=== PATIENT | male | born 1965 | race Caucasian/White ===

== ENCOUNTER 2017-09-19 21:50 | Observation (INO) | payer OTHER ==
[~2017-09-19] VITALS: Ht 175.3 cm; Wt 115.0 kg
[2017-09-19 22:20] VITALS: BP 185/91; PULSE 79; RESP 12; TEMP 98.6; O2SAT 98
--- NOTE | 2017-09-19 22:29 | PD ---
HPI Chief Complaint: Suicide Ideation/Attempt Time Seen by Provider: 22:21 Travel History International Travel<30 days: No Contact w/Intl Traveler<30days: No Traveled to known affect area: No History of Present Illness HPI 52-year-old male presents under [place] act initially by the [employer] Department. According to his paperwork he threatened to shoot himself in the head with a gun. The patient reports that today he was notified by the associate professor of forestry and police officers that his son in a car accident. He developed chest pressure immediately afterwards. This was approximately 4 PM. He describes as a substernal chest pressure which has been intermittent since then with associated lightheadedness/dizziness. Symptoms are moderate, aggravated by stress and grieving, no alleviating factors. Denies shortness of breath, nausea or vomiting, abdominal pain. He reports a history of coronary artery disease with stent placement in 2007. He reports that he has similar chest pain at that time. He also reports a history of hypertension, diabetes and hyperlipidemia. He is currently denying any suicidal ideation but he does report that he feels depressed secondary to the passing of his son. He did have a gun which he turned over to police. Denies any psychiatric history. He has no other complaints at this time. PFSH Past Medical History Hx Anticoagulant Therapy: Yes Cardiovascular Problems: Yes Chemotherapy: No Cerebrovascular Accident: No Diabetes: Yes Respiratory: No ?: Not Past Surgical History Hysterectomy: No Social History Tobacco Use: No Allergies-Medications (Allergen,Severity, Reaction): Coded Allergies: No Known Allergies (Unverified , 09/19/17) Reported Meds & Prescriptions Reported Meds & Active Scripts Active Active Prescriptions or Reported Medications Unobtainable Review of Systems Except as stated in HPI: all other systems reviewed are Neg Physical Exam Narrative GENERAL: Well-developed well-nourished male in no acute distress SKIN: Warm and dry. HEAD: Atraumatic. Normocephalic. EYES: Pupils equal and round. No scleral icterus. No injection or drainage. ENT: No nasal bleeding or discharge. Mucous membranes pink and moist. NECK: Trachea midline. No JVD. CARDIOVASCULAR: Regular rate and rhythm. No murmur appreciated. RESPIRATORY: No accessory muscle use. Clear to auscultation. Breath sounds equal bilaterally. GASTROINTESTINAL: Abdomen soft, non-tender, nondistended. Hepatic and splenic margins not palpable. MUSCULOSKELETAL: No obvious deformities. No clubbing. No cyanosis. No edema. NEUROLOGICAL: Awake and alert. No obvious cranial nerve deficits. Motor grossly within normal limits. Normal speech. PSYCHIATRIC: Appropriate mood and affect; insight and judgment normal. Data Data Last Documented VS Vital Signs Date Time Temp Pulse Resp B/P (MAP) Pulse Ox O2 Delivery O2 Flow Rate FiO2 09/19/17 23:37 71 14 194/98 (130) 96 Room Air 09/19/17 22:20 98.6 Orders Orders Electrocardiogram (09/19/17 22:21) Basic Metabolic Panel (Bmp) (09/19/17 22:21) Ckmb (Isoenzyme) Profile (09/19/17 22:21) Complete Blood Count With Diff (09/19/17 22:21) Magnesium (Mg) (09/19/17 22:21) Prothrombin Time / Inr (Pt) (09/19/17 22:21) Act Partial Throm Time (Ptt) (09/19/17 22:21) Troponin I (09/19/17 22:21) Chest, Single Ap (09/19/17 22:21) Ecg Monitoring (09/19/17 22:21) Bilateral Bp Monitoring (09/19/17 22:21) Iv Access Insert/Monitor (09/19/17 22:21) Oximetry (09/19/17 22:21) Oxygen Administration (09/19/17 22:21) Aspirin Chew (Aspirin Chew) (09/19/17 22:30) Sodium Chloride 0.9% Flush (Ns Flush) (09/19/17 22:30) Nitroglycerin Sl (Nitrostat Sl) (09/19/17 22:30) Drug Screen, Random Urine (09/19/17 22:21) Alcohol (Ethanol) (09/19/17 22:21) CKMB (09/19/17 23:10) CKMB% (09/19/17 23:10) Potassium Chloride (Kcl) (09/20/17 00:15) Metoprolol Tartrate (Lopressor) (09/20/17 00:15) Clonidine (Catapres) (09/20/17 00:15) Hydralazine (Apresoline) (09/20/17 00:15) Olanzapine (Zyprexa) (09/20/17 00:15) Admit Order (Ed Use Only) (09/20/17 00:12) Activity Bed Rest With Brp (09/20/17 00:12) Vital Signs (Adult) Q4H (09/20/17 00:12) Cardiac Rhythm .As Directed (09/20/17 00:12) Notify Dr: Other .PRN (09/20/17 00:12) Notify DrLeon Parameters (09/20/17 00:12) Resp Oxygen Nasal Cannula (09/20/17 ) Ckmb (Isoenzyme) Profile (09/20/17 02:10) Ckmb (Isoenzyme) Profile (09/20/17 05:10) Troponin I (09/20/17 02:10) Troponin I (09/20/17 05:10) Electrocardiogram (09/20/17 02:10) Electrocardiogram (09/20/17 05:10) ^ Obtain (09/20/17 00:12) Sodium Chloride 0.9% Flush (Ns Flush) (09/20/17 00:15) Sodium Chloride 0.9% Flush (Ns Flush) (09/20/17 09:00) Labs Laboratory Tests Test 09/19/17 23:10 White Blood Count 10.8 TH/MM3 Red Blood Count 5.05 MIL/MM3 Hemoglobin 14.9 GM/DL Hematocrit 42.8 % Mean Corpuscular Volume 84.8 FL Mean Corpuscular Hemoglobin 29.5 PG Mean Corpuscular Hemoglobin Concent 34.9 % Red Cell Distribution Width 13.9 % Platelet Count 236 TH/MM3 Mean Platelet Volume 9.3 FL Neutrophils (%) (Auto) 67.1 % Lymphocytes (%) (Auto) 20.1 % Monocytes (%) (Auto) 10.9 % Eosinophils (%) (Auto) 1.1 % Basophils (%) (Auto) 0.8 % Neutrophils # (Auto) 7.2 TH/MM3 Lymphocytes # (Auto) 2.2 TH/MM3 Monocytes # (Auto) 1.2 TH/MM3 Eosinophils # (Auto) 0.1 TH/MM3 Basophils # (Auto) 0.1 TH/MM3 CBC Comment DIFF FINAL Differential Comment Prothrombin Time 10.0 SEC Prothromb Time International Ratio 1.0 RATIO Activated Partial Thromboplast Time 25.0 SEC Blood Urea Nitrogen 14 MG/DL Creatinine 0.98 MG/DL Random Glucose 132 MG/DL Calcium Level 9.0 MG/DL Magnesium Level 2.0 MG/DL Sodium Level 142 MEQ/L Potassium Level 2.8 MEQ/L Chloride Level 104 MEQ/L Carbon Dioxide Level 26.3 MEQ/L Anion Gap 12 MEQ/L Estimat Glomerular Filtration Rate 81 ML/MIN Total Creatine Kinase 192 U/L Troponin I LESS THAN 0.02 NG/ML Ethyl Alcohol Level LESS THAN 3 MG/DL MDM Medical Decision Making Medical Screen Exam Complete: Yes Emergency Medical Condition: Yes Medical Record Reviewed: Yes Differential Diagnosis Angina, acute coronary syndrome, costochondritis, pericarditis, myocarditis, aortic dissection, pulmonary embolism, anxiety, depression Narrative Course The patient was placed on ECG monitoring pulse oximetry. A 12 EKG was obtained revealing sinus rhythm, Q waves noted in the inferior leads. The patient was given 243 mg of aspirin, he took 1 baby aspirin this morning. He was given 1 sublingual nitroglycerin which resolved his pain. Lab work, chest x-ray ordered. The patient is grieving the of his son however he is denying any suicidal homicidal ideation, Jordan act has been lifted by Dr. Yin. Lab work and imaging studies have been reviewed. Potassium is 2.8, oral potassium chloride ordered. At this point time the plan is to admit him into the chest pain center for serial cardiac enzymes and rule out purposes. He is agreeable. He was given his nighttime medications. Diagnosis Primary Impression: Chest pain Qualified Codes: R07.9 - Chest pain, unspecified Admitting Information Admitting Physician Requests: Observation Scripts Unable to Obtain Active Prescriptions or Reported Meds Ariel Zarate Sep 19, 2017 22:29
[2017-09-19] MEDS ORDERED: ASPIRIN 81 MG CHEW TAB PO ONE (22:30)
[2017-09-19] MEDS ORDERED: SODIUM CHLORIDE 0.9% FLUSH 10 ML FLUSH IVF PRN (22:30)
[2017-09-19] MEDS ORDERED: NITROGLYCERIN 0.4 MG SL 25 TABS/BTL SL SCH (22:30)
--- NOTE | 2017-09-19 22:47 | RADRPT ---
EXAM DATE: 09/19/2017 10:41 PM EDT AGE/SEX: 52 years / Male INDICATIONS: Chest pain. CLINICAL DATA: This is the patient's initial encounter. Patient reports that signs and symptoms have been present for 1 day and indicates a pain score of 5/10. MEDICAL/SURGICAL HISTORY: None. None. COMPARISON: No prior [facility] exams available for comparison. FINDINGS: A single AP view of the chest demonstrates the lungs to be symmetrically aerated without evidence of mass, infiltrate or effusion. The cardiomediastinal contours are unremarkable except for probable hi atal hernia. Osseous structures are intact. CONCLUSION: No acute findings. Probable hiatal hernia. Electronically signed by: Lui Mckeon MD 09/19/2017 10:46 PM EDT
[2017-09-19 23:28] LABS: AUTOMATED NEUTROPHIL # 7.2 TH/MM3 (1.8-7.7); BASOPHIL # 0.1 TH/MM3 (0-0.2); BASOPHIL % 0.8 % (0.0-2.0); EOSINOPHIL # 0.1 TH/MM3 (0-0.4); EOSINOPHIL % 1.1 % (0.0-4.0); HEMATOCRIT 42.8 % (39.0-51.0); HEMOGLOBIN 14.9 GM/DL (13.0-17.0); LYMPH % 20.1 % (9.0-44.0); LYMPHOCYTE # 2.2 TH/MM3 (1.0-4.8); MEAN CELL VOLUME 84.8 FL (80.0-100.0); MEAN CORPUSCULAR HEMOGLOBIN 29.5 PG (27.0-34.0); MEAN CORPUSCULAR HGB CONC 34.9 % (32.0-36.0); MEAN PLATELET VOLUME 9.3 FL (7.0-11.0); MONO % 10.9 % (0.0-8.0); MONOCYTE # 1.2 TH/MM3 (0-0.9); NEUT % 67.1 % (16.0-70.0); PLATELET COUNT 236 TH/MM3 (150-450); RED BLOOD COUNT 5.05 MIL/MM3 (4.50-5.90); RED CELL DISTRIBUTION WIDTH 13.9 % (11.6-17.2); WHITE BLOOD COUNT 10.8 TH/MM3 (4.0-11.0)
[2017-09-19 23:30] VITALS: BP 189/100; PULSE 68; RESP 26; O2SAT 96
[2017-09-19 23:32] VITALS: O2SAT 97
[2017-09-19 23:37] VITALS: BP 194/98; PULSE 71; RESP 14; O2SAT 96
[2017-09-20] VITALS (12 sets, daily range): BP systolic 155–212; BP diastolic 74–100; PULSE 47–65; RESP 17–20; TEMP 97.8–98.7; O2SAT 91–97
[2017-09-20] LABS: BICARBONATE 26.3 MEQ/L (21.0-32.0); BLOOD UREA NITROGEN 14 MG/DL (7-18); CHLORIDE 104 MEQ/L (98-107); CREATININE 0.98 MG/DL (0.60-1.30); GLOMERULAR FILTRATION RATE 81 ML/MIN (>89); GLUCOSE,RANDOM 132 MG/DL (74-106); SODIUM (NA) 142 MEQ/L (136-145); TROPONIN I LESS THAN 0.02 NG/ML (0.02-0.05)
[2017-09-20] MEDS ORDERED: cloNIDine HCL 0.2 MG TAB PO ONE (00:15)
[2017-09-20] MEDS ORDERED: SODIUM CHLORIDE 0.9% FLUSH 10 ML FLUSH IV FLUSH PRN (00:15)
[2017-09-20] MEDS ORDERED: OLANZapine 10 MG TAB PO ONE (00:15)
[2017-09-20] MEDS ORDERED: POTASSIUM CHLORIDE 20 MEQ CONTROLLED RELEASE TAB PO ONE (00:15)
[2017-09-20] MEDS ORDERED: hydrALAZINE HCL 25 MG TAB PO ONE (00:15)
[2017-09-20] MEDS ORDERED: METOPROLOL TARTRATE 25 MG TAB PO ONE (00:15)
--- NOTE | 2017-09-20 00:15 | PD ---
Physical Exam Narrative I, Dr. Yin, have reviewed the advance practice practitioner's documentation and am in agreement, met with the patient face to face, made the diagnosis, and the medical decision making was done by me. *My assessment and Findings: ACS vs. grievance vs. pneumonia 52yo M with CAD s/p cardiac stent, HTN, DM presents to the ED with midsternal chest pain after hearing that his son today. Said pain is pressure like. Pt was Jordan Acted because the Jordan Act said he was going to blow a hole in his head. However, pt denies stating that, said he gave his son to the chief of police and denies any suicidal or homicidal ideations. Pt is sad and grieving but has no thought of hurting himself. I am lifting the Jordan Act as pt denies any suicidal or homicidal ideations. Pt does have mild ST depression in II, aVF and does not have any prior to compare. Pt usually goes to [facility] and had a cardiac stent place last year. Labs reviewed, no leukocytosis. H/H normal. Mild hypokalemia at 2.8 and replaced orally. Troponin negative. Alcohol negative. CXR negative. With patient's risk factors, feel that chest pain center is appropriate. Pt agrees to chest pain center and is currently chest pain free. Data Data Last Documented VS Vital Signs Date Time Temp Pulse Resp B/P (MAP) Pulse Ox O2 Delivery O2 Flow Rate FiO2 09/19/17 23:37 71 14 194/98 (130) 96 Room Air 09/19/17 22:20 98.6 Orders Orders Electrocardiogram (09/19/17 22:21) Basic Metabolic Panel (Bmp) (09/19/17 22:21) Ckmb (Isoenzyme) Profile (09/19/17 22:21) Complete Blood Count With Diff (09/19/17 22:21) Magnesium (Mg) (09/19/17 22:21) Prothrombin Time / Inr (Pt) (09/19/17 22:21) Act Partial Throm Time (Ptt) (09/19/17 22:21) Troponin I (09/19/17 22:21) Chest, Single Ap (09/19/17 22:21) Ecg Monitoring (09/19/17 22:21) Bilateral Bp Monitoring (09/19/17 22:21) Iv Access Insert/Monitor (09/19/17 22:21) Oximetry (09/19/17 22:21) Oxygen Administration (09/19/17 22:21) Aspirin Chew (Aspirin Chew) (09/19/17 22:30) Sodium Chloride 0.9% Flush (Ns Flush) (09/19/17 22:30) Nitroglycerin Sl (Nitrostat Sl) (09/19/17 22:30) Alcohol (Ethanol) (09/19/17 22:21) CKMB (09/19/17 23:10) CKMB% (09/19/17 23:10) Potassium Chloride (Kcl) (09/20/17 00:15) Metoprolol Tartrate (Lopressor) (09/20/17 00:15) Clonidine (Catapres) (09/20/17 00:15) Hydralazine (Apresoline) (09/20/17 00:15) Olanzapine (Zyprexa) (09/20/17 00:15) Admit Order (Ed Use Only) (09/20/17 00:12) Activity Bed Rest With Brp (09/20/17 00:12) Vital Signs (Adult) Q4H (09/20/17 00:12) Cardiac Rhythm .As Directed (09/20/17 00:12) Notify Dr: Other .PRN (09/20/17 00:12) Notify DrLeon Parameters (09/20/17 00:12) Resp Oxygen Nasal Cannula (09/20/17 ) Ckmb (Isoenzyme) Profile (09/20/17 02:10) Ckmb (Isoenzyme) Profile (09/20/17 05:10) Troponin I (09/20/17 02:10) Troponin I (09/20/17 05:10) Electrocardiogram (09/20/17 02:10) Electrocardiogram (09/20/17 05:10) ^ Obtain (09/20/17 00:12) Sodium Chloride 0.9% Flush (Ns Flush) (09/20/17 00:15) Sodium Chloride 0.9% Flush (Ns Flush) (09/20/17 09:00) CKMB (09/20/17 02:15) CKMB% (09/20/17 02:15) CKMB (09/20/17 05:28) CKMB% (09/20/17 05:28) Labs Laboratory Tests Test 09/19/17 23:10 White Blood Count 10.8 TH/MM3 Red Blood Count 5.05 MIL/MM3 Hemoglobin 14.9 GM/DL Hematocrit 42.8 % Mean Corpuscular Volume 84.8 FL Mean Corpuscular Hemoglobin 29.5 PG Mean Corpuscular Hemoglobin Concent 34.9 % Red Cell Distribution Width 13.9 % Platelet Count 236 TH/MM3 Mean Platelet Volume 9.3 FL Neutrophils (%) (Auto) 67.1 % Lymphocytes (%) (Auto) 20.1 % Monocytes (%) (Auto) 10.9 % Eosinophils (%) (Auto) 1.1 % Basophils (%) (Auto) 0.8 % Neutrophils # (Auto) 7.2 TH/MM3 Lymphocytes # (Auto) 2.2 TH/MM3 Monocytes # (Auto) 1.2 TH/MM3 Eosinophils # (Auto) 0.1 TH/MM3 Basophils # (Auto) 0.1 TH/MM3 CBC Comment DIFF FINAL Differential Comment Prothrombin Time 10.0 SEC Prothromb Time International Ratio 1.0 RATIO Activated Partial Thromboplast Time 25.0 SEC Blood Urea Nitrogen 14 MG/DL Creatinine 0.98 MG/DL Random Glucose 132 MG/DL Calcium Level 9.0 MG/DL Magnesium Level 2.0 MG/DL Sodium Level 142 MEQ/L Potassium Level 2.8 MEQ/L Chloride Level 104 MEQ/L Carbon Dioxide Level 26.3 MEQ/L Anion Gap 12 MEQ/L Estimat Glomerular Filtration Rate 81 ML/MIN Total Creatine Kinase 192 U/L Creatine Kinase MB 0.9 NG/ML Troponin I LESS THAN 0.02 NG/ML Ethyl Alcohol Level LESS THAN 3 MG/DL [facility] Supervised Visit with MALIK: Yes Interpretation(s) EKG: NSR 71bpm. Q wave III. ST depression II, aVF. No prior to compare. Diagnosis Primary Impression: Chest pain Qualified Codes: R07.9 - Chest pain, unspecified Admitting Information Admitting Physician Requests: Observation Scripts Furosemide (Lasix) 40 Mg Tab 40 MG PO DAILY for SWELLING, #30 TAB 0 Refills Prov: David Naranjo 09/20/17 Kiley Yin DO Sep 20, 2017 00:15
[2017-09-20] MEDS ORDERED: CITA40TA4 PO (01:43)
[2017-09-20] MEDS ORDERED: LISI40TA PO (01:43)
[2017-09-20] MEDS ORDERED: CLON0.2T PO (01:43)
[2017-09-20] MEDS ORDERED: OLAN20TA PO (01:43)
[2017-09-20] MEDS ORDERED: METF1000 PO (01:43)
[2017-09-20] MEDS ORDERED: HYDR-3801 PO (01:43)
[2017-09-20] MEDS ORDERED: BUSP15TA PO (01:43)
[2017-09-20] MEDS ORDERED: VITA1000 PO (01:43)
[2017-09-20] MEDS ORDERED: FURO40TA PO (01:43)
[2017-09-20] MEDS ORDERED: AMLO10TA2 PO (01:43)
[2017-09-20] MEDS ORDERED: ASPI-516 CHEW (01:43)
[2017-09-20] MEDS ORDERED: CETI10 PO (01:43)
[2017-09-20] MEDS ORDERED: METO25TA3 PO (01:43)
[2017-09-20] MEDS ORDERED: NOVO7030P2 SQ (01:43)
[2017-09-20 02:56] LABS: TROPONIN I LESS THAN 0.02 NG/ML (0.02-0.05)
[2017-09-20 06:42] LABS: TROPONIN I LESS THAN 0.02 NG/ML (0.02-0.05)
[2017-09-20] MEDS ORDERED: INSULIN ASPART SUPPLEMENTAL SCALE SQ SCH (08:00)
[2017-09-20] MEDS ORDERED: DEXTROSE 50% IN WATER 50 ML VIAL(D50) IV PUSH PRN (08:00)
[2017-09-20] MEDS ORDERED: GLUCAGON 1 MG/ML VIAL OTHER PRN (08:00)
[2017-09-20] MEDS: INSULIN ASPART SUPPLEMENTAL SCALE SQ SCH ×2 (08:00→12:00)
[2017-09-20] MEDS ORDERED: SODIUM CHLORIDE 0.9% FLUSH 10 ML FLUSH IV FLUSH SCH (09:00)
[2017-09-20 09:17] LABS: BICARBONATE 26.3 MEQ/L (21.0-32.0); CALCIUM 8.5 MG/DL (8.5-10.1); CREATININE 0.84 MG/DL (0.60-1.30)
[2017-09-20] MEDS ORDERED: POTASSIUM CHLORIDE 25 MEQ EFFERVESCENT TAB PO ONE (09:30)
[2017-09-20] MEDS ORDERED: GABA300C5 PO (09:44)
[2017-09-20] MEDS ORDERED: METOPROLOL TARTRATE 25 MG TAB PO SCH (09:45)
[2017-09-20] MEDS ORDERED: LISINOPRIL 20 MG TAB PO SCH (09:45)
[2017-09-20] MEDS ORDERED: CITALOPRAM HYDROBROMIDE 40 MG TAB PO SCH (09:45)
[2017-09-20] MEDS ORDERED: cloNIDine HCL 0.2 MG TAB PO SCH (09:45)
[2017-09-20] MEDS ORDERED: hydrALAZINE HCL 25 MG TAB PO SCH (09:45)
--- NOTE | 2017-09-20 11:25 | HHI.HP ---
HPI Primary Care Physician Unknown Chief Complaint Chest pain History of Present Illness This is a 52-year-old male with history of CAD with stenting in 2007 presents to ED under police issued Jordan act with primary complaint of chest discomfort. Patient states that police detective came to his house yesterday and informed him that his son was killed in a motor vehicle collision. At that time he developed chest discomfort which lasted for a few hours. He was not short of breath, nauseous, or diaphoretic. States it did not feel similar to when eating a stent in 2008. He denies having suicidal ideations or homicidal ideations to me but states the police detective told him that he told the police detective that he was going to put a hole in his head and he had a gun in his house. He states he went and got the gun and gave it to the police detective. Currently denies chest discomfort. Voices compliance with medications. Review of Systems General: Patient denies fevers, chills, and recent travel. HEENT: Patient denies headache, sore throat, difficulty swallowing. Cardiovascular: Has the chest discomfort as mentioned above. Denies sensation of heart beating rapidly or irregularly. No syncope. Denies diaphoresis. Respiratory: Denies shortness of breath or inspirational chest discomfort. Denies coughing wheezing or hemoptysis. GI: Patient denies nausea, vomiting, diarrhea, abdominal pain, bloody stools. Musculoskeletal: Patient denies joint pain or edema. Denies calf pain or edema. Neurovascular: Patient denies numbness, tingling, weakness in extremities. Denies headache. Endocrine: Denies polyuria and polydipsia. Hematologic: Denies easy bruising. Psych: Denies having suicidal homicidal ideations. Denies illicit drug use. Skin: Denies rash or itching. Past Family Social History Allergies: Coded Allergies: No Known Allergies (Unverified , 09/19/17) Past Medical History CAD with a stent in 2008. Hypertension, hyperlipidemia, and diabetes. Past Surgical History Cardiac catheterization with stenting in 2007. Reported Medications Reported Meds & Active Scripts Active Reported Gabapentin 300 Mg Cap 300 Mg PO BID Olanzapine 20 Mg Tab 20 Mg PO HS Citalopram (Citalopram Hydrobromide) 40 Mg Tab 40 Mg PO DAILY Amlodipine (Amlodipine Besylate) 10 Mg Tab 10 Mg PO DAILY Cetirizine (Cetirizine HCl) 10 Mg Tab 10 Mg PO DAILY Lisinopril 40 Mg Tab 40 Mg PO DAILY Aspirin 81 Mg Chew 81 Mg CHEW DAILY Vitamin D-1000 (Cholecalciferol) 1,000 Unit Tab 2,000 Units PO DAILY Metoprolol Tartrate 25 Mg Tab 25 Mg PO BID Furosemide 40 Mg Tab 40 Mg PO BID Metformin (Metformin HCl) 1,000 Mg Tab 1,000 Mg PO BIDPC Clonidine (Clonidine HCl) 0.2 Mg Tab 0.2 Mg PO BID Hydralazine (Hydralazine HCl) 100 Mg Tab 25 Mg PO BID Take with meals Novolin 70-30 Inj (Insulin Human Isoph/Insulin Regular) 1,000 Unit/10 Ml Vial 40 Units SQ BID Buspirone (Buspirone HCl) 15 Mg Tab 15 Mg PO TID Active Ordered Medications Current Medications Medications (Trade) Dose Ordered Sig/Stefan Route Start Time Stop Time Status Last Admin (NS Flush) 2 ml UNSCH PRN IVF 09/19/17 22:30 (NS Flush) 2 ml UNSCH PRN IV FLUSH 09/20/17 00:15 (NS Flush) 2 ml BID IV FLUSH 09/20/17 09:00 09/20/17 01:33 (NovoLOG SUPPLEMENTAL SCALE) 1 ACHS SLIDING SCALE SQ 09/20/17 08:00 (D50w (Vial) Inj) 50 ml UNSCH PRN IV PUSH 09/20/17 08:00 (Glucagon Inj) 1 mg UNSCH PRN OTHER 09/20/17 08:00 (Norvasc) 10 mg DAILY PO 09/20/17 09:45 09/20/17 10:10 (Buspar) 15 mg TID PO 09/20/17 13:00 (CeleXA) 40 mg DAILY PO 09/20/17 09:45 09/20/17 10:10 (Catapres) 0.2 mg BID PO 09/20/17 09:45 09/20/17 10:10 (Apresoline) 25 mg BID PO 09/20/17 09:45 (Lopressor) 25 mg BID PO 09/20/17 09:45 (ZyPREXA) 20 mg HS PO 09/20/17 21:00 (Prinivil) 40 mg DAILY PO 09/20/17 09:45 Family History There is family history of CAD. Social History Denies tobacco abuse. Denies alcohol or illicit drug use. Physical Exam Vital Signs Vital Signs Date Time Temp Pulse Resp B/P (MAP) Pulse Ox O2 Delivery O2 Flow Rate FiO2 09/20/17 09:42 97.8 58 20 212/100 (137) 95 09/20/17 09:22 47 09/20/17 05:45 96 09/20/17 03:16 54 09/20/17 02:54 98.1 54 17 157/74 (101) 91 09/20/17 01:54 61 20 173/84 (113) 96 Room Air 09/20/17 01:43 65 20 191/87 (121) 97 Room Air 09/19/17 23:37 71 14 194/98 (130) 96 Room Air 09/19/17 23:32 97 Room Air 09/19/17 23:30 68 26 189/100 (129) 96 Room Air 09/19/17 22:20 98.6 79 12 185/91 (122) 98 Physical Exam GENERAL: This is a well-nourished, well-developed patient, in no apparent distress. Patient speaks in clear complete sentences. Patient is pleasant. HEENT: Head is atraumatic and normocephalic. Neck is supple without lymphadenopathy and trachea is midline. No JVD or carotid bruits. CARDIOVASCULAR: Regular rate and rhythm without murmurs, gallops, or rubs. RESPIRATORY: Clear to auscultation. Breath sounds equal bilaterally. No wheezes , rales, or rhonchi. Chest wall is nontender. No use of accessory muscles. GASTROINTESTINAL: Abdomen is nontender, nondistended. Abdomen soft. No obvious pulsatile mass or bruit. No CVA tenderness. Strong femoral pulses bilaterally. Normal bowel sounds in all quadrants. MUSCULOSKELETAL: Patient is moving upper and lower extremities freely. No calf tenderness or edema, no Homans sign. Strong pulses in upper and lower extremities. NEUROLOGICAL: Patient is alert and oriented. Cranial nerves 2-12 are grossly intact. No focal deficits and speech is clear. SKIN: No rash and turgor is normal. Laboratory Laboratory Tests Test 09/19/17 23:10 09/20/17 02:15 09/20/17 05:28 09/20/17 08:44 White Blood Count 10.8 Red Blood Count 5.05 Hemoglobin 14.9 Hematocrit 42.8 Mean Corpuscular Volume 84.8 Mean Corpuscular Hemoglobin 29.5 Mean Corpuscular Hemoglobin Concent 34.9 Red Cell Distribution Width 13.9 Platelet Count 236 Mean Platelet Volume 9.3 Neutrophils (%) (Auto) 67.1 Lymphocytes (%) (Auto) 20.1 Monocytes (%) (Auto) 10.9 Eosinophils (%) (Auto) 1.1 Basophils (%) (Auto) 0.8 Neutrophils # (Auto) 7.2 Lymphocytes # (Auto) 2.2 Monocytes # (Auto) 1.2 Eosinophils # (Auto) 0.1 Basophils # (Auto) 0.1 CBC Comment DIFF FINAL Differential Comment Prothrombin Time 10.0 Prothromb Time International Ratio 1.0 Activated Partial Thromboplast Time 25.0 Blood Urea Nitrogen 14 12 Creatinine 0.98 0.84 Random Glucose 132 160 Calcium Level 9.0 8.5 Magnesium Level 2.0 Sodium Level 142 142 Potassium Level 2.8 3.1 Chloride Level 104 106 Carbon Dioxide Level 26.3 26.3 Anion Gap 12 10 Estimat Glomerular Filtration Rate 81 97 Total Creatine Kinase 192 167 198 Creatine Kinase MB 0.9 0.8 0.8 Troponin I LESS THAN 0.02 LESS THAN 0.02 LESS THAN 0.02 Ethyl Alcohol Level LESS THAN 3 Result Diagram: 09/19/17 2310 09/20/17 0844 Imaging Last 48 hours Impressions Chest X-Ray 09/19/17 2221 Signed Impressions: CONCLUSION: No acute findings. Probable hiatal hernia. Course EKGs are sinus rhythm with sinus bradycardia rate of [address] segment depressions or elevations. Caprini VTE Risk Assessment Caprini VTE Risk Assessment: No/Low Risk (score <= 1) Caprini Risk Assessment Model Point Value = 1 Point Value = 2 Point Value = 3 Point Value = 5 Age 41-60 Minor surgery BMI > 25 kg/m2 Swollen legs Varicose veins or History of unexplained or recurrent spontaneous Oral contraceptives or hormone replacement Sepsis (< 1 month) Serious lung disease, including pneumonia (< 1 month) Abnormal pulmonary function Acute myocardial infarction Congestive heart failure (< 1 month) History of inflammatory bowel disease Medical patient at bed rest Age 61-74 Arthroscopic surgery Major open surgery (> 45 min) Laparoscopic surgery (> 45 min) Malignancy Confined to bed (> 72 hours) Immobilizing plaster cast Central venous access Age >= 75 History of VTE Family history of VTE Factor V Leiden Prothrombin [id number] Lupus anticoagulant Anticardiolipin antibodies Elevated serum homocysteine Heparin-induced thrombocytopenia Other congenital or acquired thrombophilia Stroke (< 1 month) Elective arthroplasty Hip, pelvis, or leg fracture Acute spinal cord injury (< 1 month) Prophylaxis Regimen Total Risk Factor Score Risk Level Prophylaxis Regimen 0-1 Low Early ambulation 2 Moderate Order ONE of the following: *Sequential Compression Device (SCD) *Heparin 5000 units SQ BID 3-4 Higher Order ONE of the following medications: *Heparin 5000 units SQ TID *Enoxaparin/Lovenox 40 mg SQ daily (WT < 150 kg, CrCl > 30 mL/min) *Enoxaparin/Lovenox 30 mg SQ daily (WT < 150 kg, CrCl > 10-29 mL/min) *Enoxaparin/Lovenox 30 mg SQ BID (WT < 150 kg, CrCl > 30 mL/min) AND/OR *Sequential Compression Device (SCD) 5 or more Highest Order ONE of the following medications: *Heparin 5000 units SQ TID (Preferred with Epidurals) *Enoxaparin/Lovenox 40 mg SQ daily (WT < 150 kg, CrCl > 30 mL/min) *Enoxaparin/Lovenox 30 mg SQ daily (WT < 150 kg, CrCl > 10-29 mL/min) *Enoxaparin/Lovenox 30 mg SQ BID (WT < 150 kg, CrCl > 30 mL/min) AND *Sequential Compression Device (SCD) Assessment and Plan Assessment and Plan * Chest pain: Patient has had serial cardiac enzymes and EKGs for ruling out purposes. He was seen by Dr. Carter of cardiology in the chest pain center. He will undergo a Lexiscan and likely be discharged home if the stress test is nonischemic. Patient should follow-up with PCP. Return to ED for interval issues. * Likely adjustment reaction: The ER physician lifted the patient's Jordan act. Psychiatry is also evaluated the patient in consultation and Dr. Hollins states he agrees with ER physician within the Jordan act. States that he can be discharged home from a psychiatric standpoint. * CAD: We will reassess with stress testing. 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 * Hypertension: Continue medication. * Hyperlipidemia: Continue medication. * Diabetes: Patient will be on sliding scale insulin coverage while in chest pain center. He should follow diabetic diet. Patient is agreeable to this plan. He is stable at this time. David Naranjo Sep 20, 2017 11:25
[2017-09-20] MEDS ORDERED: busPIRone HCL 5 MG TAB PO SCH (13:00)
[2017-09-20] MEDS ORDERED: REGADENOSON INJ 0.4 MG/5 ML SYR ONE (14:28)
--- NOTE | 2017-09-20 15:49 | PD.PSY.CON ---
Provisional Diagnosis Admission Date Sep 20, 2017 at 00:16 [place] I. Adjustment disorder with depressed mood, history of depression and anxiety [place] II. Deferred [place] III. Diabetes, SC, CAD, CHF, History of Present Illness Service Psychiatry Consult Requested By ER team Reason for Consult Suicidal ideation Primary Care Physician Unknown HPI The patient is 52-year-old Tha man, domiciled in [place] [facility], he has a girlfriend, he is employed, with psychiatric history of bipolar disorder, anxiety, previous psychiatric hospitalizations, no previous suicidal attempts, no history of self cutting behavior, established outpatient psychiatric care with private psychiatrist, he is on olanzapine 20 mg, BuSpar 15 mg 3 times daily , citalopram 40 mg, with medical history of CAD, diabetes, CHF, SC, who presents to ED under police issued Jordan act with primary complaint of chest discomfort. Patient states that police commissioner came to his house yesterday and informed him that his son was killed in a motor vehicle collision. At that time he developed chest discomfort which lasted for a few hours. He was not short of breath, nauseous, or diaphoretic. States it did not feel similar to when eating a stent in 2007. He denies having suicidal ideations or homicidal ideations to me but states the police commissioner told him that he told the police commissioner that he was going to put a hole in his head and he had a gun in his house. He states he went and got the gun and gave it to the police commissioner. Currently denies chest discomfort. Voices compliance with medications. Patient was Jordan acted by police due to suicidal statement. On psychiatric evaluation the reports that the only thing that he told to the police when they came home to gave him then he is of his son in a car asked "was to take my gun and put it in a safe place". Patient reports that he never stated that he wanted to kill himself. Patient reports that his committed suicide some years ago and he was very depressed after that. The first thing that he thought when the police gave him the bad new is that he would be safer without a gun. At this moment the patient reports feeling very sad in the context of his current situation, but he denies hopelessness, he denies helplessness, he denies anhedonia, he denies suicidal enemas ideation. He denies visual and auditory hallucinations. I spoke with his girlfriend Lorraine, who clarifies that the patient is not a danger to self. He also clarifies that her brother who is a police commissioner has a search the patient's house looking for other potential guns. He does not have any safety concern at the moment. Review of Systems Constitutional: DENIES: Diaphoretic episodes, Fatigue, Fever, Weight gain, Weight loss, Chills, Dizziness, Change in appetite, Night Sweats Endocrine: DENIES: Heat/cold intolerance, Polydipsia, Polyuria, Polyphagia Eyes: DENIES: Blurred vision, Diplopia, Eye inflammation, Eye pain, Vision loss , Photosensitivity, Double Vision Ears, nose, mouth, throat: DENIES: Tinnitus, Hearing loss, Vertigo, Nasal discharge, Oral lesions, Throat pain, Hoarseness, Ear Pain, Running Nose, Epistaxis, Sinus Pain, Toothache, Odynophagia Respiratory: DENIES: Apneas, Cough, Snoring, Wheezing, Hemoptysis, Sputum production, Shortness of breath Cardiovascular: DENIES: Chest pain, Palpitations, Syncope, Dyspnea on Exertion , PND, Lower Extremity Edema, Orthopnea, Claudication Gastrointestinal: DENIES: Abdominal pain, Black stools, Bloody stools, Constipation, Diarrhea, Nausea, Vomiting, Difficulty Swallowing, Anorexia Genitourinary: DENIES: Sexual dysfunction, Urinary frequency, Urinary incontinence, Urgency, Hematuria, Dysuria, Nocturia, Penile Discharge, Testicular Pain, Testicular Swelling Musculoskeletal: DENIES: Joint pain, Muscle aches, Stiffness, Joint Swelling, Back pain, Neck pain Integumentary: DENIES: Abnormal pigmentation, Nail changes, Pruritus, Rash Hematologic/lymphatic: DENIES: Bruising, Lymphadenopathy Immunologic/allergic: DENIES: Eczema, Urticaria Neurologic: DENIES: Abnormal gait, Headache, Localized weakness, Paresthesias, Seizures, Speech Problems, Tremor, Poor Balance Psychiatric: COMPLAINS OF: Mood changes, Depression, DENIES: Anxiety, Confusion , Hallucinations, Agitation, Suicidal Ideation, Homicidal Ideation, Delusions Past Family Social History Coded Allergies: No Known Allergies (Unverified , 09/19/17) Reported Medications Gabapentin (Gabapentin) 300 Mg Cap, 300 MG PO BID, #60 CAP 0 Refills 09/20/17 Olanzapine (Olanzapine) 20 Mg Tab, 20 MG PO HS, #30 TAB 0 Refills 09/20/17 Citalopram (Citalopram) 40 Mg Tab, 40 MG PO DAILY for Control Depression, #30 TAB 0 Refills 09/20/17 Amlodipine (Amlodipine) 10 Mg Tab, 10 MG PO DAILY for Blood Pressure Management , #30 TAB 0 Refills 09/20/17 Cetirizine (Cetirizine) 10 Mg Tab, 10 MG PO DAILY for Allergies, TAB 0 Refills 09/20/17 Lisinopril (Lisinopril) 40 Mg Tab, 40 MG PO DAILY for Blood Pressure Management , #30 TAB 0 Refills 09/20/17 Aspirin (Aspirin) 81 Mg Chew, 81 MG CHEW DAILY, TAB 0 Refills 09/20/17 Cholecalciferol (Vitamin D-1000) 1,000 Unit Tab, 2000 UNITS PO DAILY for Nutritional Supplement, #1 BOTTLE 0 Refills 09/20/17 Metoprolol Tartrate (Metoprolol Tartrate) 25 Mg Tab, 25 MG PO BID, #60 TAB 0 Refills 09/20/17 Furosemide (Furosemide) 40 Mg Tab, 40 MG PO BID, #60 TAB 0 Refills 09/20/17 Metformin (Metformin) 1,000 Mg Tab, 1000 MG PO BIDPC for Blood Sugar Management , #60 TAB 0 Refills 09/20/17 Clonidine (Clonidine) 0.2 Mg Tab, 0.2 MG PO BID for Blood Pressure Management, # 60 TAB 0 Refills 09/20/17 Hydralazine (Hydralazine) 100 Mg Tab, 25 MG PO BID for Blood Pressure Management , TAB 0 Refills Take with meals 09/20/17 Insulin Human Isophane-Regular 70-30 Inj (Novolin 70-30 Inj) 1,000 Unit/10 Ml Vial, 40 UNITS SQ BID for Blood Sugar Management, ML 0 Refills 09/20/17 Buspirone (Buspirone) 15 Mg Tab, 15 MG PO TID for Anxiety, TAB 0 Refills 09/20/17 Current Medications Medications (Trade) Dose Ordered Sig/Stefan Route Start Time Stop Time Status Last Admin (NS Flush) 2 ml UNSCH PRN IVF 09/19/17 22:30 (NS Flush) 2 ml UNSCH PRN IV FLUSH 09/20/17 00:15 (NS Flush) 2 ml BID IV FLUSH 09/20/17 09:00 09/20/17 01:33 (NovoLOG SUPPLEMENTAL SCALE) 1 ACHS SLIDING SCALE SQ 09/20/17 08:00 (D50w (Vial) Inj) 50 ml UNSCH PRN IV PUSH 09/20/17 08:00 (Glucagon Inj) 1 mg UNSCH PRN OTHER 09/20/17 08:00 (Norvasc) 10 mg DAILY PO 09/20/17 09:45 09/20/17 10:10 (Buspar) 15 mg TID PO 09/20/17 13:00 09/20/17 13:04 (CeleXA) 40 mg DAILY PO 09/20/17 09:45 09/20/17 10:10 (Catapres) 0.2 mg BID PO 09/20/17 09:45 09/20/17 10:10 (Apresoline) 25 mg BID PO 09/20/17 09:45 09/20/17 11:37 (Lopressor) 25 mg BID PO 09/20/17 09:45 09/20/17 11:37 (ZyPREXA) 20 mg HS PO 09/20/17 21:00 (Prinivil) 40 mg DAILY PO 09/20/17 09:45 09/20/17 11:37 Family Psych History No family psychiatric history Social History Patient was born and raised in [place], he lives in [place] along, his , but he has a girlfriend, 3 kids, employed, his highest level of education is eighth grade Patient's Strengths (min. 2) Outpatient psychiatric care, on treatment Physical Exam No tremors, no EPS, no psychomotor agitation or retarded Vital Signs Vital Signs Date Time Temp Pulse Resp B/P (MAP) Pulse Ox O2 Delivery O2 Flow Rate FiO2 09/20/17 12:25 51 20 160/87 (111) 95 09/20/17 11:26 98.7 09/20/17 01:54 Room Air Lab Results Test 09/19/17 23:10 09/20/17 02:15 09/20/17 05:28 09/20/17 08:44 White Blood Count 10.8 TH/MM3 Red Blood Count 5.05 MIL/MM3 Hemoglobin 14.9 GM/DL Hematocrit 42.8 % Mean Corpuscular Volume 84.8 FL Mean Corpuscular Hemoglobin 29.5 PG Mean Corpuscular Hemoglobin Concent 34.9 % Red Cell Distribution Width 13.9 % Platelet Count 236 TH/MM3 Mean Platelet Volume 9.3 FL Neutrophils (%) (Auto) 67.1 % Lymphocytes (%) (Auto) 20.1 % Monocytes (%) (Auto) 10.9 % Eosinophils (%) (Auto) 1.1 % Basophils (%) (Auto) 0.8 % Neutrophils # (Auto) 7.2 TH/MM3 Lymphocytes # (Auto) 2.2 TH/MM3 Monocytes # (Auto) 1.2 TH/MM3 Eosinophils # (Auto) 0.1 TH/MM3 Basophils # (Auto) 0.1 TH/MM3 CBC Comment DIFF FINAL Differential Comment Prothrombin Time 10.0 SEC Prothromb Time International Ratio 1.0 RATIO Activated Partial Thromboplast Time 25.0 SEC Blood Urea Nitrogen 14 MG/DL 12 MG/DL Creatinine 0.98 MG/DL 0.84 MG/DL Random Glucose 132 MG/DL 160 MG/DL Calcium Level 9.0 MG/DL 8.5 MG/DL Magnesium Level 2.0 MG/DL Sodium Level 142 MEQ/L 142 MEQ/L Potassium Level 2.8 MEQ/L 3.1 MEQ/L Chloride Level 104 MEQ/L 106 MEQ/L Carbon Dioxide Level 26.3 MEQ/L 26.3 MEQ/L Anion Gap 12 MEQ/L 10 MEQ/L Estimat Glomerular Filtration Rate 81 ML/MIN 97 ML/MIN Total Creatine Kinase 192 U/L 167 U/L 198 U/L Creatine Kinase MB 0.9 NG/ML 0.8 NG/ML 0.8 NG/ML Troponin I LESS THAN 0.02 NG/ML LESS THAN 0.02 NG/ML LESS THAN 0.02 NG/ML Ethyl Alcohol Level LESS THAN 3 MG/DL Mental Status Examination Appearance: Appropriate Consciousness: Alert Orientation: x4 Motor Activity: Normal gait Speech: Unremarkable Language: Adequate Fund of Knowledge: Adequate Attention and Concentration: Adequate Memory: Unremarkable Mood: Sad Affect: Sad Thought Process & Associations: Intact Thought Content: Appropriate Hallucination Type: None Delusion Type: None Suicidal Ideation: No Suicidal Plan: No Suicidal Intention: No Homicidal Ideation: No Homicidal Plan: No Homicidal Intention: No Insight: Adequate Judgment: Adequate Assessment & Plan Problem List: (1) Adjustment disorder with depressed mood ICD Codes: F43.21 - Adjustment disorder with depressed mood Assessment & Plan: On psychiatric evaluation the patient presents with symptomatology of morning consisting on sadness, cry spells in the context of recent of his son, but no anhedonia, no hopelessness, no worthlessness, no suicide ideation, no homicidal ideation. The patient denies visual and auditory hallucinations. He is logical, coherent and relevant. Oriented 3. Recent concern about a suicidal statement and having legal gun at home has been address with the patient and girlfriend. His gun has been removed from home by the police, the patient is in agreement with this. The patient does not meet criteria for involuntary psychiatric admission, brief supportive psychotherapy, motivation and psychoeducation provided. Continue Celexa 40 mg, BuSpar 15 mg 3 times daily, olanzapine 20 mg at bedtime. Continue psychiatric care as an outpatient. Jordan act will be lifted. Assessment & Plan Estimated LOS: Amauri Atkinson MD Sep 20, 2017 15:49
--- NOTE | 2017-09-20 16:43 | RADRPT ---
EXAM DATE: 09/20/2017 3:38 PM EDT AGE/SEX: 52 years / Male INDICATIONS:Angina. . Chest pain. CLINICAL DATA: This is the patient's initial encounter. Patient reports that signs and symptoms have been present for 1 day and indicates a pain score of 0/10. MEDICAL/SURGICAL HISTORY: Diabetes mellitus type II. Hypertension. Hypercholesterolemia. CA. Angioplasty. Total knee replacement, left. COMPARISON: No prior [facility] exams available for comparison. DOSE: 26.3 mCi Tc 99m Myoview at stress 11 mCi [id number] at rest 0.4 mg Lexiscan STRESS SYMPTOMS: Short of breath. EJECTION FRACTION: 51 % TECHNIQUE: The patient underwent pharmacologic stress with infusion of prescribed dose. Continuous ECG tracing was monitored during stress. Gated SPECT imaging was performed after stress and conventi onal SPECT imaging was performed at rest. The examination was performed on a SPECT/CT scanner, both attenuation and non-corrected datasets were reviewed. FINDINGS: Distribution: The maximum perfused segment at stress is in the anterior septal wall. Perfusion Study: Left ventricle cavity appears enlarged. There is patchy perfusion on the rest imag es. No fixed or reversible perfusion defect is identified. Gated Study: No focal wall motion abnormality is identified. The ejection fraction is calculated at 51%. RISK CATEGORY: Low (<1% Annual Motality Rate) CONCLUSION: 1. No concerning perfusion abnormality is identified. 2. No focal wall motion abnormality is identified. Left ventricular ejection fraction is calculated at 51%. Electronically signed by: Michael Vasquez MD 09/20/2017 4:41 PM EDT
[2017-09-20] MEDS ORDERED: FURO1TAB60 PO (16:49)
--- NOTE | 2017-09-20 16:58 | HHI.DCPOC ---
Discharge Care Plan Diagnosis: (1) Chest pain (2) CAD (coronary artery disease) (3) H/O heart artery stent (4) DM (diabetes mellitus) (5) Hypertension (6) Hyperlipidemia (7) Hypokalemia (8) Suicidal ideations Goals to Promote Your Health PLEASE DISCUSS YOUR LOW POTASSIUM LEVEL WITH YOUR PRIMARY CARE DOCTOR. YOU SHOULD HAVE YOUR POTASSIUM LEVEL RECHECKED WITH YOUR DOCTOR 2-3 DAYS. YOU MIGHT HAVE TO GO ON POTASSIUM MEDICATION. * To prevent worsening of your condition and complications * To maintain your health at the optimal level Directions to Meet Your Goals Take your medications as prescribed Follow your dietary instruction Follow activity as directed Keep your appointments as scheduled Take your immunizations and boosters as scheduled If your symptoms worsen call your PCP, if no PCP go to Urgent Care Center or Emergency Room Smoking is Dangerous to Your Health. Avoid second hand smoke Call the 24-hour hour crisis hotline for domestic abuse at David Naranjo Sep 20, 2017 16:58
--- NOTE | 2017-09-20 17:24 | TR ---
Date Performed: 09/20/2017 Time Performed: 14:15:42 DOCTOR: Soraya Carter DRUG LIST: CLINICAL HISTORY: REASON FOR TEST: REASON FOR ENDING: OBSERVATION: CONCLUSION: Lexiscan stress test was performed under standard four minute protocol. Radionuclid e was injected one minute prior to ending the test. No electrocardiographic abormalities were present to suggest ischemia. Nuclear imaging and interpretation are pending. COMMENTS: NO ischemia
--- NOTE | 2017-09-20 17:27 | EKG ---
Date Performed: 09/20/2017 Time Performed: 04:57:56 PTAGE: 52 years EKG: SINUS BRADYCARDIA INFERIOR MYOCARDIAL INFARCTION ABNORMAL ECG Since PREVIOUS TRACING , no significant change noted DOCTOR: Soraya Carter Interpretating Date/Time 09/20/2017 17:26:04
--- NOTE | 2017-09-20 17:29 | EKG ---
Date Performed: 09/19/2017 Time Performed: 23:00:19 PTAGE: 52 years EKG: Sinus rhythm INFERIOR MYOCARDIAL INFARCTION ABNORMAL ECG NO PREVIOUS TRACING DOCTOR: Soraya Carter Interpretating Date/Time 09/20/2017 17:28:59
--- NOTE | 2017-09-20 17:29 | EKG ---
Date Performed: 09/20/2017 Time Performed: 02:10:02 PTAGE: 52 years EKG: SINUS BRADYCARDIA INFERIOR MYOCARDIAL INFARCTION ABNORMAL ECG Since PREVIOUS TRACING , no significant change noted PREVIOUS TRACIN09/19/2017 23.00 DOCTOR: Soraya Carter Interpretating Date/Time 09/20/2017 17:27:46
[2017-09-20] MEDS ORDERED: OLANZapine 10 MG TAB PO SCH (21:00)
== END 2017-09-20 17:36 | disposition home or self-care (01) ==
LOC: NEPD 21:50 → NEDA 09-20 00:16 → NEPFCDU 09-20 02:50
PROVIDERS: ADMIT Internal Medicine Cardiovascular Disease; ATTEND Internal Medicine Cardiovascular Disease
DX: R45.851 Suicidal ideations (principal); R07.89 Other chest pain; R42 Dizziness and giddiness; I25.10 Atherosclerotic heart disease of native coronary artery without angina pectoris; Z95.5 Presence of coronary angioplasty implant and graft; I10 Essential (primary) hypertension; E78.5 Hyperlipidemia, unspecified; E11.9 Type 2 diabetes mellitus without complications; Z79.01 Long term (current) use of anticoagulants; E87.6 Hypokalemia; Z79.84 Long term (current) use of oral hypoglycemic drugs; Z79.899 Other long term (current) drug therapy; Z82.49 Family history of ischemic heart disease and other diseases of the circulatory system; R94.31 Abnormal electrocardiogram [ECG] [EKG]; F31.9 Bipolar disorder, unspecified; F41.9 Anxiety disorder, unspecified; F43.21 Adjustment disorder with depressed mood
CPT/HCPCS: 71045; 78452; 80048; 80307; 82550; 82552; 82948; 83735; 84484; 85025; 85610; 85730; 93005; 93017; 99285; A9502; G0378; J2785